=== PATIENT | male | born 1975 | race African-American/Black ===

== ENCOUNTER 2016-06-12 11:01 | Observation (INO) | payer OTHER ==
--- NOTE | ~2016-06-12 | EKG ---
PATIENT: LIZABETH FERGUSON UNIT #: [id number] Ventricular Rate: 64 BPM Atrial Rate: 64 BPM P-R Interval: 158 ms QRS Duration: 92 ms Q-T Interval: 374 ms QTC Calculation(Bezet): 385 ms P Sula: 32 degrees Calculated R Sula: 53 degrees Calculated T Sula: 25 degrees Diagnosis Line: Normal sinus rhythm with sinus arrhythmia Diagnosis Line: Normal ECG Diagnosis Line: When compared with ECG of 14-APR-2016 09:56, Diagnosis Line: Nonspecific T wave abnormality now evident in Diagnosis Line: Inferior leads Diagnosis Line: Confirmed by ROBERTO STAFFORD MD ([id number]) on Diagnosis Line: 06/13/2016 4:12:01 PM INTERPRETING MD: RIVERA ALSTON
--- NOTE | ~2016-06-12 | CR72 ---
[facility] A Service of [facility] & [facility] RADIOLOGY TEXT RESULTS PATIENT: LIZABETH FERGUSON LOCATION: [facility] : 75 UNIT #: [id number] AGE: [address]: Marilyn Osborn MD SEX: M ORDER DR: [id number] [facility] [address] [place], [place] [address] [id number] E MR#: [id number] Acc #: [id number] NAME: LIZABETH FERGUSON : 1975 SEX: M STUDY DATE/TIME: 06/12/2016 10:43 UNIT: [facility] ROOM: STUDY DESCRIPTION: CR Chest Single View Portable Attending Physician: Marilyn Osborn M.D. Ordering Physician: Marilyn Osborn M.D. Primary Care Physician: [facility], [facility] MEDICAL IMAGING REPORT This report is preliminary unless electronic signature is present EXAM Portable chest HISTORY Vomiting blood, low back spasms x1 week, onset of vomiting blood this morning. History of leaky heart valves. COMPARISON 05/29/2016 FINDINGS A single AP portable view of the chest shows both lungs to be clear. The heart is normal in size. The mediastinal contour is normal. No significant bone abnormalities are seen. IMPRESSION Normal portable chest. Dictated by... Mannie Romero M.D. THIS IS AN ELECTRONICALLY VERIFIED REPORT Mannie Romero M.D. at 06/12/2016 5:15 PM Alcides TD: 06/12/2016 17:04 JOB #: [id number] MEDICAL IMAGING REPORT COPY
--- NOTE | ~2016-06-12 | CT2 ---
[facility] A Service of [facility] RADIOLOGY TEXT RESULTS PATIENT: LIZABETH FERGUSON LOCATION: [facility] : 75 UNIT #: [id number] AGE: [address]: Cathy Herring MD SEX: M ORDER DR: [id number] [address] [place], [place] [address] [id number] I MR#: [id number] Acc #: [id number] NAME: LIZABETH FERGUSON : 1975 SEX: M STUDY DATE/TIME: 06/12/2016 14:19 UNIT: [facility] ROOM: [facility] STUDY DESCRIPTION: CT Abd and Pelv W Cont Attending Physician: Cathy Herring M.D. Ordering Physician: Marilyn Osborn M.D. Primary Care Physician: [facility], [facility] MEDICAL IMAGING REPORT This report is preliminary unless electronic signature is present EXAM CT abdomen and pelvis with contrast INDICATIONS Hematemesis since this morning. PROCEDURE Contrast-enhanced CT of the abdomen and pelvis. 100 mL of Isovue-370. This CT exam was performed with one or more of the following radiation dose reduction techniques: Automatic exposure control, adjustment of mA and/or kV according to patient size, and iterative reconstruction. COMPARISON 11/18/2015 FINDINGS ABDOMEN WITH CONTRAST: Included lung bases are clear. Liver, spleen, kidneys, adrenal glands, pancreas, gallbladder unremarkable. The bowel loops are nondilated. Appendix is normal. 2 cm fat-containing umbilical hernia. PELVIS WITH CONTRAST: No pelvic mass or fluid. No aggressive appearing bone lesion. IMPRESSION 1. No clearly acute finding in the abdomen or pelvis. No finding to explain the patient's hematemesis. 2. 2 cm fat-containing umbilical hernia. Dictated by... [facility] A Service of [facility] RADIOLOGY TEXT RESULTS PATIENT: LIZABETH FERGUSON LOCATION: [facility] : 75 UNIT #: [id number] AGE: [address]: Cathy Herring MD SEX: M ORDER DR: Prabhjot Kirk M.D. THIS IS AN ELECTRONICALLY VERIFIED REPORT Prabhjot Kirk M.D. at 06/13/2016 7:09 AM ARJUND/morro TD: 06/13/2016 04:03 JOB #: [id number] MEDICAL IMAGING REPORT COPY
--- NOTE | ~2016-06-12 | HP ---
Unit #: [id number] #: [id number] Patient: LIZABETH FERGUSON [id number] [facility] [address] [place], [place] [address] [id number] E MR#: [id number] NAME: LIZABETH FERGUSON ROOM: Age: 40 Sex: M Admission Date: 06/12/2016 : 1975 Attending Physician: Marilyn Osborn M.D. Primary Care Physician: On License Of [facility], [facility] HISTORY AND PHYSICAL CHIEF COMPLAINT Vomiting blood. HISTORY OF PRESENT ILLNESS The patient is a 40-year-old male with past medical history of hypertension, hyperlipidemia, valvular heart disease, GERD, who presented to the emergency department for evaluation of the above. The patient states that he started vomiting blood this morning. He states that he has had two bouts of emesis admixed with blood. He has pain in his upper abdomen since this morning. He describes it as "burning." It has been fairly constant in nature. There are no exacerbating or alleviating factors. He denies any similar pain. He states that he has had muscle spasms in his back for the past week. He denies any diarrhea. No blood in the stool or black tarry stool. In the emergency department rectal exam was heme positive per my discission with the ER staff. Hemoglobin is 13.7. He has never had endoscopy. He is being admitted to [facility] for evaluation and further treatment. PAST MEDICAL HISTORY 1. Admission to [facility] April 26, 2015 for pneumonia. 2. Hypertension. 3. Hyperlipidemia. 4. Valvular heart disease followed by Dr. Kenyon. There is no echocardiogram in [facility] for review. 5. GERD. PAST SURGICAL HISTORY 1. Neck surgery. 2. Skin graft. SOCIAL HISTORY The patient works in the [employer] room at [employer]. He denies tobacco or alcohol use. FAMILY HISTORY Family history is notable for his mother having asthma. His father is ; he is not really sure about his medical problems. ALLERGIES Unit #: [id number] #: [id number] Patient: LIZABETH FERGUSON No known allergies. HOME MEDICATIONS 1. Lisinopril. 2. Albuterol. Home medications will need to be reviewed and verified. REVIEW OF SYSTEMS A complete review of systems is negative except as indicated in the HPI. DIAGNOSTIC STUDIES LABORATORY: Complete blood count is completely normal. Urinalysis is essentially negative. INR is 1. Comprehensive metabolic panel is normal. PHYSICAL EXAMINATION VITAL SIGNS: Temperature is 98. Pulse 84. Respirations 14. Blood pressure 132/79. GENERAL: The patient is an -Turkmen male in no acute distress. He is awake and alert. HEENT: The head is atraumatic. Mucous membranes are moist. NECK: Neck is supple. Trachea is midline. CARDIOVASCULAR: Regular rate and rhythm. LUNGS: Lungs are clear to auscultation bilaterally with no increased work of breathing. ABDOMEN: Abdomen is soft, nontender, with bowel sounds present all four quadrants. EXTREMITIES: Nontender with no pedal edema. NEUROLOGIC: The patient is awake and alert. He follows commands. PSYCHIATRIC: Mood and affect are normal. SKIN: Skin of examined areas is warm and dry. ASSESSMENT The patient is a 40-year-old male with: 1. Hematemesis. The patient reports two bouts of bloody emesis. His hemoglobin is 13.7. He has never had endoscopy. 2. Gastroesophageal reflux disease. 3. Hypertension. 4. Hyperlipidemia. 5. Valvular heart disease, followed by Dr. Kenyon. PLAN 1. Admit for observation to intermediate level. 2. Clear liquid diet. 3. Hemoglobin and hematocrit q.6 h. 4. Protonix. 5. Check EKG and cardiac enzymes. 6. Repeat labs in the morning. 7. SCDs for DVT prophylaxis. 8. If the patient's hemoglobin remains stable I think he can probably follow up with Gastroenterology for endoscopy as an outpatient. Dictated by Cathy Herring M.D. Unit #: [id number] #: [id number] Patient: LIZABETH FERGUSON ANA LUISA/faustino TD: 06/12/2016 17:53 JOB #: [id number] HISTORY AND PHYSICAL X Cathy Herring MD HISTORY AND PHYSICAL
[~2016-06-12 11:01] MED LIST: FLEXERIL10 MG PO; LEVAQUIN750 M1 PO; LISINOPRIL-HCTZ1 T19 PO; LISINOPRIL10 MG PO; NORVASC10 MG PO; ORUDIS75 M1 PO; PRAVACHOL20 MG PO; PREVACID PO; VOLTAREN75 MG PO
[2016-06-12 12:00] LABS: BASOPHIL% 0.9 % (0-2.5); EOSINOPHIL# 0.2 X10e3 (0-0.7); EOSINOPHIL% 3.7 % (0.0-7.0); HEMOGLOBIN 13.7 gm/dL (13.0-16.0); LYMPHOCYTE# 1.7 X10e3 (1.0-3.5); LYMPHOCYTE% 32.8 % (17.0-45.0); MEAN CELL VOLUME 87.4 FL (83-96); MEAN CORPUSCULAR HEMOGLOBIN 28.4 PG (28-34); MEAN CORPUSCULAR HGB CONC 32.5 g/dL (30-36); MEAN PLATELET VOLUME 8.1 FL (6.5-11.5); MONOCYTE# 0.3 X10e3 (0-1.0); MONOCYTE% 5.5 % (3.0-12.0); NEUTROPHIL# 2.9 X10e3 (1.5-7.1); NEUTROPHIL% 57.1 % (40-75); PLATELET COUNT 222 X10e3 (140-420); RED BLOOD COUNT 4.81 X10e (3.90-5.60)
[2016-06-12 12:05] LABS: DIFF IND NO
[2016-06-12 12:05] LABS: URINE SOURCE CLEAN CATCH
[2016-06-12 12:13] LABS: URINE APPEARANCE CLEAR; URINE BILIRUBIN NEG (NEG); URINE BLOOD NEG (NEG); URINE COLOR YELLOW; URINE GLUCOSE NEG (NEG); URINE KETONE NEG (NEG); URINE LEUKOCYTE ESTERASE NEG (NEG); URINE NITRATE NEG (NEG); URINE PH 7.5 (5-8); URINE PROTEIN NEG (NEG); URINE SPECIFIC GRAVITY 1.016 (1.003-1.035); URINE UROBILINOGEN 0.2 MG/DL (NEG)
[2016-06-12 12:15] LABS: PARTIAL THROMBOPLASTIN TIME 25.2 SECONDS (23.5-31.3)
[2016-06-12 12:26] LABS: CULTURE INDICATED? NO
[2016-06-12 12:40] LABS: ALKALINE PHOSPHATASE 39 U/L (32-92); ALT (SGPT) 31 U/L (10-40); AST (SGOT) 31 U/L (10-42); BILIRUBIN, DIRECT 0.2 mg/dL (0.0-0.2); BILIRUBIN,INDIRECT 0.4 mg/dL (0.0-0.9); BILIRUBIN,TOTAL 0.6 mg/dL (0.2-2.0); BLOOD UREA NITROGEN 11 mg/dL (9-23); BUN/CREATININE RATIO 7.85; CALCIUM SERUM 9.6 mg/dL (8.4-10.2); CARBON DIOXIDE 26 mmol/L (22-31); CHLORIDE 105 mmol/L (100-111); CREATININE SERUM 1.4 mg/dL (0.6-1.4); GLOM FILT RATE Estimated ABOVE60 mL/min (>60); GLUCOSE FASTING 101 mg/dL (70-110); POTASSIUM 3.9 mmol/L (3.5-5.1); PROTEIN TOTAL SERUM 7.1 g/dL (6.0-8.3); SODIUM 138 mmol/L (135-145)
[2016-06-12] MEDS ORDERED: LISINOPRIL-HCTZ1 T19 PO (16:29)
[2016-06-12] MEDS ORDERED: ALBUTEROL17 GM INH (16:30)
[2016-06-12 17:57] LABS: HEMATOCRIT 42.7 % (38.0-50.0)
[2016-06-12 18:59] LABS: %MB 0.7 % (0.0-4.0); MB 2.8 ng/ml
[2016-06-13 07:47] LABS: HEMATOCRIT 41.1 % (38.0-50.0); HEMOGLOBIN 13.7 gm/dL (13.0-16.0)
[2016-06-13 08:23] LABS: BUN/CREATININE RATIO 7.05; CALCIUM SERUM 8.9 mg/dL (8.4-10.2); CREATININE SERUM 1.7 mg/dL (0.6-1.4); GLOM FILT RATE Estimated 57.7 mL/min (>60); POTASSIUM 3.9 mmol/L (3.5-5.1)
[2016-06-13 09:31] LABS: %MB 0.7 % (0.0-4.0); MB 2.4 ng/ml
[2016-06-13] MEDS ORDERED: PROTONIX PO (10:45)
[2016-06-13 12:19] LABS: HEMATOCRIT 42.4 % (38.0-50.0); HEMOGLOBIN 13.9 gm/dL (13.0-16.0)
[2016-06-13] MEDS ORDERED: PROMETHAZI PR (12:50)
[2016-06-13] MEDS ORDERED: SUP PR (12:50)
== END 2016-06-13 13:45 | disposition home or self-care (01) ==
LOC: CED 11:01 → CEDOF 16:55 → C5B 21:00
PROVIDERS: Emergency Medicine; Family Medicine
DX: K92.0 Hematemesis (principal); K21.9 Gastro-esophageal reflux disease without esophagitis; I10 Essential (primary) hypertension; E78.5 Hyperlipidemia, unspecified; I38 Endocarditis, valve unspecified; K42.9 Umbilical hernia without obstruction or gangrene; Z82.5 Family history of asthma and other chronic lower respiratory diseases
CPT/HCPCS: 36415; 71010; 74177; 80048; 80076; 81003; 82550; 82553; 84484; 85014; 85018; 85025; 85610; 85730; 93005; 94760; 96374; 96375; 96376; 99285; C9113; G0378; J1885; J2405; Q9967

== ENCOUNTER 2016-07-03 13:03 | Emergency (ER) | payer OTHER ==
--- NOTE | ~2016-07-03 | CR63 ---
[facility] A Service of [facility] & [facility] RADIOLOGY TEXT RESULTS PATIENT: LIZABETH FERGUSON LOCATION: [facility] : 75 UNIT #: [id number] AGE: [address]: Lexi Rodriguez SEX: M ORDER DR: [id number] [facility] [address] [place], [place] [address] [id number] E MR#: [id number] Acc #: [id number] NAME: LIZABETH FERGUSON : 1975 SEX: M STUDY DATE/TIME: 07/03/2016 13:10 UNIT: [facility] ROOM: STUDY DESCRIPTION: CR Chest 2 View Attending Physician: Lexi Rodriguez P.A.-C. Referring Physician: [facility] Ordering Physician: Lexi Rodriguez P.A.-C. Primary Care Physician: [facility] MEDICAL IMAGING REPORT This report is preliminary unless electronic signature is present EXAM Chest, 07/03/2016, [facility]. HISTORY 40-year-old male patient with headaches, sore throat, cough x1 week. Previous diagnosis of flu. COMPARISON Chest, 06/12/2016. FINDINGS PA and lateral chest views show normal cardiac size and configuration. Hilar structures and mediastinal contours are preserved. Bilateral lungs are expanded and clear. IMPRESSION Negative chest. No acute chest finding. Dictated by... Diomedes Hook M.D. THIS IS AN ELECTRONICALLY VERIFIED REPORT Diomedes Hook M.D. at 07/03/2016 3:44 PM SAM/krishna TD: 07/03/2016 15:27 JOB #: [id number] MEDICAL IMAGING REPORT Page 1 of 1 COPY
[~2016-07-03 13:03] MED LIST changes: +ALBUTEROL17 GM INH; +PROMETHAZI PR; +PROTONIX PO; +SUP PR
== END 2016-07-03 13:45 | disposition home or self-care (01) ==
LOC: CFTX 13:03
DX: J11.1 Influenza due to unidentified influenza virus with other respiratory manifestations (principal); I10 Essential (primary) hypertension; K21.9 Gastro-esophageal reflux disease without esophagitis
CPT/HCPCS: 71020; 87651; 94640; 99283

== ENCOUNTER 2016-07-19 03:33 | Emergency (ER) | payer OTHER ==
--- NOTE | ~2016-07-19 | CR72 ---
[facility] A Service of [facility] & [facility] RADIOLOGY TEXT RESULTS PATIENT: LIZABETH FERGUSON LOCATION: [facility] : 75 UNIT #: [id number] AGE: [address]: Dariel Glasgow MD SEX: M ORDER DR: [id number] [facility] [address] [place], [place] [address] [id number] E MR#: [id number] Acc #: [id number] NAME: LIZABETH FERGUSON : 1975 SEX: M STUDY DATE/TIME: 07/19/2016 03:34 UNIT: [facility] ROOM: STUDY DESCRIPTION: CR Chest Single View Portable Attending Physician: Dariel Glasgow Ordering Physician: Dariel Glasgow, [id number] Primary Care Physician: Elías Rowley M.D. MEDICAL IMAGING REPORT This report is preliminary unless electronic signature is present EXAM Portable chest 07/19 0334 INDICATIONS Weakness, cough and nausea, worse over the last 2 days. Recent diagnosis of flu. FINDINGS AP portable chest compared 07/03/2016. Heart is enlarged. Right lung is clear. There is some mild infiltrate or atelectasis at the left base. No pneumothorax. IMPRESSION Cardiomegaly with mild left base infiltrate or atelectasis. Dictated by... Can Mckeon Jr., M.D. THIS IS AN ELECTRONICALLY VERIFIED REPORT Can Mckeon Jr., M.D. at 07/19/2016 9:25 PM LIBBY/ml TD: 07/19/2016 09:43 JOB #: [id number] MEDICAL IMAGING REPORT Page 1 of 1 COPY
== END 2016-07-19 04:21 | disposition home or self-care (01) ==
LOC: CED 03:33
DX: J18.1 Lobar pneumonia, unspecified organism (principal); K21.9 Gastro-esophageal reflux disease without esophagitis
CPT/HCPCS: 71010; 99282; 99283

== ENCOUNTER 2016-07-20 13:36 | Emergency (ER) | payer OTHER ==
--- NOTE | ~2016-07-20 | EKG ---
PATIENT: LIZABETH FERGUSON UNIT #: [id number] Ventricular Rate: 87 BPM Atrial Rate: 87 BPM P-R Interval: 148 ms QRS Duration: 84 ms Q-T Interval: 342 ms QTC Calculation(Bezet): 411 ms P Page: 31 degrees Calculated R Page: 47 degrees Calculated T Page: 19 degrees Diagnosis Line: Normal sinus rhythm Diagnosis Line: Moderate voltage criteria for LVH, may be normal Diagnosis Line: variant Diagnosis Line: Borderline ECG Diagnosis Line: When compared with ECG of 12-JUN-2016 17:26, Diagnosis Line: No significant change was found Diagnosis Line: Confirmed by GEOVANNA PALOMARES MD ([id number]) on Diagnosis Line: 07/26/2016 5:36:30 AM INTERPRETING : NAHED
== END 2016-07-20 14:30 | disposition home or self-care (01) ==
LOC: CED 13:36
DX: J18.1 Lobar pneumonia, unspecified organism (principal); E78.5 Hyperlipidemia, unspecified; I10 Essential (primary) hypertension; Z98.890 Other specified postprocedural states
CPT/HCPCS: 93005; 99283

== ENCOUNTER 2016-08-04 06:30 | Emergency (ER) | payer OTHER | END 2016-08-04 06:47 | disposition home or self-care (01) | LOC: CED 06:30 | DX: M25.551 Pain in right hip (principal); M25.552 Pain in left hip; M79.652 Pain in left thigh; M79.651 Pain in right thigh; I10 Essential (primary) hypertension; E78.5 Hyperlipidemia, unspecified | CPT/HCPCS: 99282 ==